=== PATIENT | female | born 1945 | race Two or more races ===

== ENCOUNTER 2019-01-29 14:41 | Inpatient (IN) | payer OTHER ==
[2019-02-04] MEDS ORDERED: FOLINIC-PLUS C1 EACH (12:59)
[2019-02-04] MEDS ORDERED: CALTRATE 600 +1 EACH (12:59)
[2019-02-04] MEDS ORDERED: EXELON1 EAC1 (12:59)
[2019-02-04] MEDS ORDERED: NAMENDA10 MG (13:00)
[2019-02-04] MEDS ORDERED: GINKGO BILOBA120 MG (13:01)
[2019-02-04] MEDS ORDERED: VITAMIN E400 UNI2 (13:01)
[2019-02-04] MEDS ORDERED: GARLIC1 EACH (13:01)
[2019-02-10] MEDS ORDERED: HYOSCYAMINE0.125 M1 SL (12:20)
[2019-02-10] MEDS ORDERED: INTEGRA F CAPS1 EACH PO (12:20)
[2019-02-10] MEDS ORDERED: OXYC1TAB9 PO (12:21)
== END 2019-02-10 12:39 | disposition home or self-care (01) | DRG 331 ==
LOC: SURG 02-04 11:15 → O/R 02-06 05:19 → SURG 02-06 05:19 → EDBD 02-06 11:15 → SURG 02-06 11:15
PROVIDERS: Obstetrics & Gynecology Gynecologic Oncology; ADMIT Surgery
PROC: 0UT54ZZ Resection of Right Fallopian Tube, Percutaneous Endoscopic Approach (ICD-10-PCS; 2019-02-06)
PROC: 0UT24ZZ Resection of Bilateral Ovaries, Percutaneous Endoscopic Approach (ICD-10-PCS; 2019-02-06)
PROC: 0DJD8ZZ Inspection of Lower Intestinal Tract, Via Natural or Artificial Opening Endoscopic (ICD-10-PCS; 2019-02-06)
PROC: 0DTN4ZZ Resection of Sigmoid Colon, Percutaneous Endoscopic Approach (ICD-10-PCS; principal; 2019-02-06 07:00)
PROC: 07TB4ZZ Resection of Mesenteric Lymphatic, Percutaneous Endoscopic Approach (ICD-10-PCS; 2019-02-06 07:00)
DX: K57.32 Diverticulitis of large intestine without perforation or abscess without bleeding (principal); R59.0 Localized enlarged lymph nodes; K63.89 Other specified diseases of intestine; N83.332 Acquired atrophy of left ovary and fallopian tube; N83.331 Acquired atrophy of right ovary and fallopian tube; D50.0 Iron deficiency anemia secondary to blood loss (chronic)